=== PATIENT | male | born 1955 | race Caucasian/White ===

== ENCOUNTER → 2022-01-02 | Outpatient (CLI) | payer OTHER ==
[~2022-01-02] VITALS: Ht 182.9 cm; Wt 138.3 kg
[2022-01-02 13:27] LABS: BASOPHILS % (AUTO) 0.5 % (0.0-5.0); EOSINOPHILS % (AUTO) 1.9 % (0.0-8.0); HEMATOCRIT 43.3 % (42-54); LYMPHOCYTES % (AUTO) 18.1 % (21.0-51.0); MEAN CORPUSCULAR HEMOGLOBIN 31.8 pg (27.0-33.0); MEAN CORPUSCULAR HGB CONC 34.2 g/dL (32.0-36.0); MEAN CORPUSCULAR VOLUME 92.9 fL (79-99); MONOCYTES % (AUTO) 4.8 % (3.0-13.0); NEUTROPHILS % (AUTO) 74.5 % (40.0-77.0); PLATELET COUNT (AUTO) 187 K/uL (130-400); RED BLOOD CELL COUNT(AUTO) 4.66 MIL/uL (4.50-6.20)
[2022-01-02 13:37] LABS: CREATININE 1.3 mg/dL (0.5-1.5); POTASSIUM 4.3 mmol/L (3.5-5.1)
[2022-01-02 13:40] LABS: INR 1.84 (0.85-1.15); PROTHROMBIN TIME 19.4 SEC (9.6-11.6)
[2022-01-02 13:41] LABS: PARTIAL THROMBOPLASTIN TIME 31.2 SEC (26.3-35.5)
[2022-01-06 09:12] VITALS: BP 148/79
== END | disposition home or self-care (01) ==
LOC: DAH 10:00 → EDSTATUS 01-07 11:35
PROVIDERS: ATTEND Orthopaedic Surgery
DX: Z01.818 Encounter for other preprocedural examination (principal); Z20.822 Contact with and (suspected) exposure to COVID-19; M17.11 Unilateral primary osteoarthritis, right knee; I49.1 Atrial premature depolarization; Z79.01 Long term (current) use of anticoagulants
CPT/HCPCS: 93005; 87426; 80048; 85025; 85610; 85730; 36415; A6260

== ENCOUNTER 2022-02-04 05:35 | Observation (INO) | payer OTHER ==
[2022-01-30 11:50] LABS: BASOPHILS % (AUTO) 0.4 % (0.0-5.0); EOSINOPHILS % (AUTO) 1.9 % (0.0-8.0); HEMATOCRIT 44.9 % (42-54); LYMPHOCYTES % (AUTO) 17.5 % (21.0-51.0); MEAN CORPUSCULAR HEMOGLOBIN 31.6 pg (27.0-33.0); MEAN CORPUSCULAR HGB CONC 33.4 g/dL (32.0-36.0); MEAN CORPUSCULAR VOLUME 94.7 fL (79-99); NEUTROPHILS % (AUTO) 74.9 % (40.0-77.0); PLATELET COUNT (AUTO) 179 K/uL (130-400); RED BLOOD CELL COUNT(AUTO) 4.74 MIL/uL (4.50-6.20); RED CELL DISTRIBUTION WIDTH 13.1 % (11.0-15.5); WHITE BLOOD COUNT (AUTO) 10.7 K/uL (4.8-10.8)
[2022-01-30 11:59] LABS: CREATININE 1.4 mg/dL (0.5-1.5); POTASSIUM 4.9 mmol/L (3.5-5.1)
[2022-01-30 12:11] LABS: INR 1.56 (0.85-1.15); PROTHROMBIN TIME 16.6 SEC (9.6-11.6)
[2022-01-30 12:13] LABS: PARTIAL THROMBOPLASTIN TIME 29.4 SEC (26.3-35.5)
[2022-02-03 10:22] VITALS: BP 158/80
[2022-02-04] VITALS (22 sets, daily range): BP systolic 95–168; BP diastolic 55–78
[~2022-02-04] VITALS: Ht 182.9 cm; Wt 138.4 kg
[~2022-02-04 05:35] MED LIST: AMLO-258 PO; CEFAZOLIN SODIUM 2 GM VIAL IVPB SCH; INSREG SQ; LISI5TAB21 PO; LOSA100T58 PO; NPH,100V11 SQ; SIMV-46 PO; TRANEXAMIC ACID 1000MG/10ML ONE; WARF-57 PO
[2022-02-04] MEDS ORDERED: BUPIVACAINE/PF 0.5% 30ML VIAL ONE ×2 (05:42→05:58)
[2022-02-04] MEDS ORDERED: LACTATED RINGERS 1000ML 1,000 ML IV ONE (06:15)
[2022-02-04 06:44] LABS: INR 1.06 (0.85-1.15); PROTHROMBIN TIME 11.5 SEC (9.6-11.6)
[2022-02-04 06:46] LABS: PARTIAL THROMBOPLASTIN TIME 25.1 SEC (26.3-35.5)
[2022-02-04] MEDS ORDERED: PROPOFOL 10 MG/ML 20ML VIAL IV ONE (06:47)
[2022-02-04] MEDS ORDERED: LIDOCAINE PF 100MG/5ML (2%) SYRINGE 5ML ONE (06:49)
[2022-02-04] MEDS ORDERED: MIDAZOLAM HCL 1 MG/ML 2ML VIAL ONE (06:50)
[2022-02-04] MEDS ORDERED: FENTANYL CITRATE PF 50 MCG/1 ML 5ML AMP IV ONE (06:50)
[2022-02-04] MEDS ORDERED: ROCURONIUM 10MG/1ML SYR 10 MG/ML ML ONE (06:50)
[2022-02-04] MEDS ORDERED: EPHEDRINE SULFATE 50 MG/ML AMPULE ONE (06:53)
[2022-02-04] MEDS ORDERED: CEFAZOLIN SODIUM 2 GM VIAL IVPB ONE (07:27)
[2022-02-04] MEDS ORDERED: TRANEXAMIC ACID 1000MG/10ML IV ONE (07:44)
[2022-02-04] MEDS ORDERED: BUPIVACAINE/PF 0.5% 30ML VIAL INJ ONE (07:57)
[2022-02-04] MEDS ORDERED: ONDANSETRON 4MG INJ ONE (08:52)
[2022-02-04] MEDS ORDERED: SUGAMMADEX SODIUM 200 MG/2 ML VIAL IV ONE (08:55)
[2022-02-04] MEDS: ACETAMINOPHEN 1,000 MG/100 ML VIAL IV SCH ×2 (09:30→15:22)
[2022-02-04] MEDS ORDERED: LIDOCAINE HCL-MPF 1% 2ML VIAL IV PRN (09:30)
[2022-02-04] MEDS ORDERED: HYDROCODONE/ACETAMINOPHEN 5/325 MG TAB PO PRN (09:30)
[2022-02-04] MEDS ORDERED: POTASSIUM CHLORIDE 20MEQ/100ML 100 ML IV PRN (09:30)
[2022-02-04] MEDS ORDERED: POTASSIUM CHLORIDE 10% ELIXIR 20 MEQ/15 ML UDCUP PO PRN (09:30)
[2022-02-04] MEDS ORDERED: KCL 20 MEQ ERTAB PO PRN (09:30)
[2022-02-04] MEDS ORDERED: KETOROLAC 30MG VIAL (30MG/ML) ONE (09:35)
[2022-02-04] MEDS ORDERED: MEPERIDINE-PF 25 MG/ML SYG ONE ×2 (09:35→09:52)
[2022-02-04] MEDS: ONDANSETRON 4MG INJ IVP PRN ×2 (09:42→09:43)
[2022-02-04] MEDS ORDERED: HYDRALAZINE 20MG/ML VIAL ONE (09:53)
[2022-02-04] MEDS: INSULIN HUMULIN R 100 UNIT/ML 3ML SQ SCH ×3 (13:34→21:31)
[2022-02-04] MEDS: 0.9%NACL 1000ML 1,000 ML IV SCH ×2 (13:36→19:30)
[2022-02-04] MEDS: CEFAZOLIN SODIUM 2 GM VIAL IVP SCH ×2 (14:59→21:32)
[2022-02-04] MEDS ORDERED: WARFARIN SODIUM 5 MG TAB PO SCH (21:00)
[2022-02-04] MEDS ORDERED: LISINOPRIL 5 MG TABLET PO SCH (21:00)
[2022-02-04] MEDS ORDERED: INSULIN NPH 100 UNIT/ML 3ML SQ SCH (21:00)
[2022-02-04] MEDS ORDERED: AMLODIPINE 5 MG TAB PO SCH (21:00)
[2022-02-04] MEDS ORDERED: ASPIRIN 81 MG EC TAB PO SCH (21:00)
[2022-02-04] MEDS: FAMOTIDINE 20MG TAB PO SCH (21:30)
[2022-02-04] MEDS: HYDROCODONE/ACETAMINOPHEN 10/325 MG TAB PO PRN (21:45)
[2022-02-05] VITALS: BP 136/67
[2022-02-05] MEDS: MORPHINE 4 MG SYG IVP PRN ×3 (03:01→12:40)
[2022-02-05 04:00] VITALS: BP 135/66
[2022-02-05] MEDS: 0.9%NACL 1000ML 1,000 ML IV SCH (05:09)
[2022-02-05 05:28] LABS: HEMATOCRIT 39.6 % (42-54); MEAN CORPUSCULAR HEMOGLOBIN 32.1 pg (27.0-33.0); MEAN CORPUSCULAR HGB CONC 33.3 g/dL (32.0-36.0); MEAN CORPUSCULAR VOLUME 96.4 fL (79-99); RED BLOOD CELL COUNT(AUTO) 4.11 MIL/uL (4.50-6.20); RED CELL DISTRIBUTION WIDTH 13.3 % (11.0-15.5); WHITE BLOOD COUNT (AUTO) 13.3 K/uL (4.8-10.8)
[2022-02-05 05:29] LABS: CREATININE 1.6 mg/dL (0.5-1.5); POTASSIUM 4.8 mmol/L (3.5-5.1)
[2022-02-05 05:41] LABS: INR 1.05 (0.85-1.15); PROTHROMBIN TIME 11.3 SEC (9.6-11.6)
[2022-02-05] MEDS: INSULIN HUMULIN R 100 UNIT/ML 3ML SQ SCH ×3 (06:34→17:44)
[2022-02-05] MEDS: HYDROCODONE/ACETAMINOPHEN 10/325 MG TAB PO PRN ×2 (06:39→17:55)
[2022-02-05 08:00] VITALS: BP 152/69
[2022-02-05] MEDS ORDERED: POLYETHYLENE GLYCOL 3350 17 GM POWD.PACK PO SCH (09:00)
[2022-02-05] MEDS ORDERED: LOSARTAN 100 MG TABLET PO SCH (09:00)
[2022-02-05] MEDS: FAMOTIDINE 20MG TAB PO SCH (09:05)
[2022-02-05 12:00] VITALS: BP 152/68
[2022-02-05] MEDS ORDERED: ENOXAPARIN SODIUM 30 MG/0.3 ML SQ SCH (12:30)
[2022-02-05 16:00] VITALS: BP 146/72
[2022-02-06] MEDS ORDERED: ENOXAPARIN SODIUM 30 MG/0.3 ML SQ SCH (09:00)
[2022-02-07] MEDS ORDERED: BISACODYL 10 MG SUPP.RECT RC PRN (09:30)
== END 2022-02-05 19:00 | disposition home or self-care (01) ==
LOC: DAH 05:35 → DAHIP 05:36 → DAH 05:36 → 4CH 11:00
PROVIDERS: ADMIT Orthopaedic Surgery; ATTEND Orthopaedic Surgery
DX: M17.11 Unilateral primary osteoarthritis, right knee (principal); Z20.822 Contact with and (suspected) exposure to COVID-19; E66.9 Obesity, unspecified; Z68.41 Body mass index [BMI] 40.0-44.9, adult; Z79.899 Other long term (current) drug therapy; Z98.890 Other specified postprocedural states; Z79.01 Long term (current) use of anticoagulants; Z79.4 Long term (current) use of insulin; Z79.82 Long term (current) use of aspirin
CPT/HCPCS: 80048 ×2; 85025; 85610 ×3; 85730 ×2; 87426; 36415 ×3; 93005; 27447; 96376 ×2; 96365; 96375 ×2; 82948 ×8; 97039 ×2; 96372; 85027; 97161; 97116 ×2; 97530 ×2; A6260; J1815 ×7; C1776 ×4; G0378 ×31; A4663; J7030; A4649 ×4; J7120; J3010; J3490 ×6; J2001; J0360; J2250; J2704; J2405 ×2; J1885; J2175 ×2; J0690 ×4; G0168; A6255; A6254; A5120; A4215; A4223; A4222; A4221; J1650; J2270 ×3